=== PATIENT | female | born 1950 | race Caucasian/White ===

== ENCOUNTER 2021-07-12 17:46 | Emergency (ER) | payer MEDICARE, OTHER ==
[~2021-07-12] VITALS: Ht 162.6 cm; Wt 83.1 kg
[2021-07-12] MEDS ORDERED: ONDANSETRON PF 4 MG/2 ML VIAL. ONE (18:17)
[2021-07-12] MEDS ORDERED: ONDANSETRON PF 4 MG/2 ML VIAL. IVP ONE ×2 (18:30→21:30)
--- NOTE | 2021-07-12 18:33 | EKG ---
[address] [address] Test Date: 2021-07-12 Test Time: 18:26:18 Pat Name: VIJAYA NEGRO Department: Room: Gender: F Medical Assembler: AYLEEN : 1950 Requested By: BRAYDON MUÑOZ Order Number: [id number] Reading MD: Mookie Patel Measurements Intervals [place] Rate: 84 P: 31 [place]: 150 QRS: -6 QRSD: 80 T: 63 QT: 388 QTc: 462 Interpretive Statements SINUS RHYTHM ATRIAL PREMATURE COMPLEX(ES) LEFTWARD AXIS Electronically Signed On 07-14-2021 16:04:32 CDT by Mookie Patel
[2021-07-12 18:42] LABS: BASO % 0 % (0-3); EOS # 0.1 x10^3/uL (0.0-0.7); EOS % 1 % (0-3); HEMATOCRIT 44.6 % (36.0-47.0); HEMOGLOBIN 15.2 g/dL (12.0-15.5); LYMPH # 2.4 x10^3/uL (1.0-4.8); LYMPH % 24 % (24-48); MEAN CORPUSCULAR HEMOGLOBIN 33 pg (25-35); MEAN CORPUSCULAR HGB CONC 34 g/dL (31-37); MEAN CORPUSCULAR VOLUME 95 fL (79-100); MONO # 1.3 x10^3/uL (0.0-1.1); MONO % 13 % (0-9); NEUT # 6.1 x10^3uL (1.8-7.7); NEUT % 62 % (31-73); PLATELET COUNT 281 x10^3/uL (140-400); RED BLOOD COUNT 4.68 x10^6/uL (3.50-5.40); RED CELL DISTRIBUTION WIDTH 13.6 % (11.5-14.5); WHITE BLOOD COUNT 9.8 x10^3/uL (4.0-11.0)
--- NOTE | 2021-07-12 18:42 | PHYS DOC ---
Past History Past Surgical History: Hysterectomy (BRAYDON MUÑOZ APRN) Alcohol Use: None (BRAYDON MUÑOZ APRN) General Adult EDM: Chief Complaint: NAUSEA/VOMITING/DIARRHEA HPI: HPI: Patient is a 70-year-old female presents with nausea, productive cough, shortness of breath. Patient states that she was seen in the [facility] a week ago and told she had bronchitis and started on doxycycline. Patient states "I am coughing so hard that I start gagging and have been able to take my antibiotics". Denies vomiting. Denies abdominal pain. Denies chest pain. Afebrile. (BRAYDON MUÑOZ APRN) Review of Systems: Review of Systems: Constitutional: Denies fever or chills Eyes: Denies change in visual acuity HENT: Denies nasal congestion or sore throat Respiratory: Denies cough or shortness of breath Cardiovascular: Denies chest pain or edema GI: Denies abdominal pain, vomiting, diarrhea. Reports nausea : Denies dysuria Musculoskeletal: Denies back pain or joint pain Integument: Denies rash Neurologic: Denies headache, focal weakness or sensory changes Endocrine: Denies polyuria or polydipsia Lymphatic: Denies swollen glands Psychiatric: Denies depression or anxiety (BRAYDON MUÑOZ APRN) Current Medications: Current Meds: Current Medications Medications (Trade) Dose Ordered Sig/Beni Start Time Stop Time Status Last Admin Dose Admin Ondansetron HCl (Zofran) 4 mg 1X ONCE 07/12/21 18:30 07/12/21 18:32 DC (BRAYDON MUÑOZ APRN) Allergies: Allergies: Allergies Coded Allergies Type Severity Reaction Last Updated Verified No Known Drug Allergies 07/12/21 No (BRAYDON MUÑOZ APRN) Physical Exam: PE: Constitutional: Well developed, well nourished, no acute distress, non-toxic appearance. [] HENT: Normocephalic, atraumatic, bilateral external ears normal, oropharynx moist, no oral exudates, nose normal. [] Eyes: PERRLA, EOMI, conjunctiva normal, no discharge. [] Neck: Normal range of motion, no tenderness, supple, no stridor. [] Cardiovascular:Heart rate sinus tachycardia, no murmur [] Lungs & Thorax: Bilateral breath sounds clear to auscultation [] Abdomen: Bowel sounds normal, soft, no tenderness, no masses, no pulsatile masses. [] Skin: Warm, dry, no erythema, no rash. [] Back: No tenderness, no CVA tenderness. [] Extremities: No tenderness, no cyanosis, no clubbing, ROM intact, no edema. [] Neurologic: Alert and oriented X 3, normal motor function, normal sensory function, no focal deficits noted. [] Psychologic: Affect normal, judgement normal, mood normal. [] (BRAYDON MUÑOZ APRN) Current Patient Data: Vital Signs: Vital Signs Date Time Temp Pulse Resp B/P (MAP) Pulse Ox O2 Delivery O2 Flow Rate FiO2 07/12/21 18:08 97.9 111 18 132/92 (105) 100 (BRAYDON MUÑOZ APRN) EKG: EKG: Sinus rhythm. Heart rate 84 bpm. No STEMI. Read by Dr. Vasquez (BRAYDON MUÑOZ APRN) Radiology/Procedures: Radiology/Procedures: []EXAMINATION: Chest radiograph. VIEWS: Single AP view of the chest COMPARISON: None INDICATION:70 years, Female, cough, shortness of breath, bronchitis x1 week ago. FINDINGS: Normal cardiomediastinal silhouette. Hazy left basilar Concepcion with associated volume loss. No pleural effusion or pneumothorax. No acute osseous process. IMPRESSION: Left basilar hazy opacity favors atelectasis, less likely developing infiltrate Electronically signed by: Harman Thomas DO (07/12/2021 6:57 PM) [facility] -CTA CHEST INDICATION: SOB Comparison: None. TECHNIQUE: Following the uneventful administration of intravenous contrast, 75 cc Omnipaque 350, axial CT sections were obtained through the lungs and upper abdomen. Multiplanar reconstructions and MIP images were obtained. RS compliance statement: One or more of the following individualized dose reduction techniques were utilized for this examination: 1. Automated exposure control 2. Adjustment of the mA and/or kV according to patient size 3. Use of iterative reconstruction technique FINDINGS: Pulmonary arteries: No evidence of pulmonary thromboembolic disease. Lungs and Airways: Scattered bilateral groundglass opacities. No abnormality of the central airways. Pleura: The pleural spaces are normal. Heart and Mediastinum: The visualized thyroid is normal in size and attenuation. No axillary or supraclavicular lymphadenopathy. No mediastinal, hilar or retrocrural lymphadenopathy. The heart and pericardium are within normal limits. The great vessels of the thorax are normal. Abdomen: Hepatomegaly and hepatic steatosis. Bones and Soft Tissues: Degenerative changes of the spine. IMPRESSION: 1. No evidence of pulmonary thromboembolic disease. 2. Scattered bilateral groundglass opacities, which could represent edema or infection Electronically signed by: Andrey Gray MD (07/12/2021 9:08 PM) [facility] (BRAYDON MUÑOZ APRN) Heart Score: C/O Chest Pain: No Risk Factors: Risk Factors: DM, Current or recent (<one month) smoker, HTN, HLP, family history of CAD, obesity. Risk Scores: Score 0 - 3: 2.5% MACE over next 6 weeks - Discharge Home Score 4 - 6: 20.3% MACE over next 6 weeks - Admit for Clinical Observation Score 7 - 10: 72.7% MACE over next 6 weeks - Early Invasive Strategies (BRAYDON MUÑOZ APRN) Course & Med Decision Making: Course & Med Decision Making Pertinent Labs and Imaging studies reviewed. (See chart for details) [] 62-year-old female presents with cough, shortness of breath and nausea. Patient was recently diagnosed with bronchitis and started on doxycycline. D-dimer 0.86. CTA ordered to rule out PE. CTA unremarkable. All labs unremarkable. Discussed results with patient. Patient most likely is becoming nauseated due to postnasal drip and taking doxycycline on an empty stomach. Discussed taking antibiotic with food. Patient treated in the ER with dexamethasone and Zofran. Patient requested also to be tested for Covid. Explained patient it would take 24 to 48 hours to receive results. Patient is concerned with taking doxycycline due to making her ill. Patient sent home with Zofran and azithromycin. Recommended purchasing Sudafed to help treat symptoms. Patient should follow up with her PCP in 2 to 3 days if symptoms do not improve. Discussed return precautions. Patient is hemodynamically stable upon disposition and states symptoms have improved. (BRAYDON MUÑOZ APRN) Course & Med Decision Making Did not see or evaluate patient. Did not discuss patient with LENDING ADVISOR. Agree with LENDING ADVISOR's work-up and disposition per note. (KARLIE VASQUEZ MD) Emmanuelon Disclaimer: Dragjamila Disclaimer: This electronic medical record was generated, in whole or in part, using a voice recognition dictation system. (BRAYDON MUÑOZ APRN) Departure Departure: Impression: Primary Impression: Nausea Additional Impression: Cough Disposition: HOME / SELF CARE / HOMELESS Condition: STABLE Referrals: BERRY JOSE MD (PCP) Patient Instructions: Cough, Adult, [id number] Additional Instructions: EMERGENCY DEPARTMENT GENERAL DISCHARGE INSTRUCTIONS Thank you for coming to [facility] (ED) today and trusting us with you care. We trust that you had a positivie experience in our Emergency Department. If you wish to speak to the department management, you may call the director at [phone]. YOUR FOLLOW UP INSTRUCTIONS ARE FOLLOWS: 1. Do you have a private Doctor? If you do not have a private doctor, please ask for a resource list of physicians or clinics that may be able to assist you with follow up care. 2. The Emergency Physician has interpreted your x-rays. The X-Ray specialist will also review them. If there is a change in the findings, you will be notified in 48 hours when at all possible. 3. A lab test or culture has been done, your results will be reviewed and you will be notified if you need a change in treatment. ADDITIONAL INSTRUCTIONS AND INFORMATION: 1. Your care today has been supervised by a physician who is specially trained in emergency care. Many problems require more than one evaluation for a complete diagnosis and treatment. We recommend that you schedule your follow up appointment as recommended to ensure complete treatment of you illness or injury. If you are unable to obtain follow up care and continue to have a problem, or if your condition worsens, we recommend that you return to the ED. 2. We are not able to safely determine your condition over the phone nor are we able to give sound medical advice over the phone. For these safety reasons, if you call for medical advice we will ask you to come to the ED for further evaluation. 3. If you have any questions regarding these discharge instructions please call the ED at [phone]. SAFETY INFORMATION: In the interest of safety, wellness, and injury prevention; we encourage you to wear your sealbelt, if you smoke; quite smoking, and we encourage family to use a protective helmet for bicycling and other sporting events that present an increased risk for head injury. IF YOUR SYMPTOMS WORSEN OR NEW SYMPTOMS DEVELOP, OR YOU HAVE CONCERNS ABOUT YOUR CONDITION; OR IF YOUR CONDITION WORSENS WHILE YOU ARE WAITING FOR YOUR FOLLOW UP APPOINTMENT; EITHER CONTACT YOUR PRIMARY CARE DOCTOR, THE PHYSICIAN WHOSE NAME AND NUMBER YOU WERE GIVEN, OR RETURN TO THE ED IMMEDIATELY. Scripts Azithromycin (ZITHROMAX) 250 Mg Tablet 1 PKG PO UD for bronchitis for 5 Days, #1 PKG Prov: BRAYDON MUÑOZ APRN 07/12/21 Ondansetron Hcl (ZOFRAN) 4 Mg Tablet 4 MG PO TID PRN PRN for NAUSEA for 7 Days, #9 TAB Prov: BRAYDON MUÑOZ APRN 07/12/21 BRAYDON MUÑOZ APRN Jul 12, 2021 18:42 KARLIE VASQUEZ MD Jul 13, 2021 03:06
[2021-07-12 18:48] LABS: CALCIUM 9.9 mg/dL (8.5-10.1); CREATININE 1.1 mg/dL (0.6-1.0); GFR 49.4; POTASSIUM 3.8 mmol/L (3.5-5.1)
[2021-07-12 18:54] LABS: ALBUMIN 3.5 g/dL (3.4-5.0); ALBUMIN/GLOBULIN RATIO 0.7 (1.0-1.7); TOTAL BILIRUBIN 0.9 mg/dL (0.2-1.0); TOTAL PROTEIN 8.8 g/dL (6.4-8.2)
[2021-07-12] MEDS ORDERED: IV NORMAL SALINE 1,000ML 1,000 ML IV ONE (19:00)
--- NOTE | 2021-07-12 19:00 | RAD ---
EXAMINATION: Chest radiograph. VIEWS: Single AP view of the chest COMPARISON: None INDICATION:70 years, Female, cough, shortness of breath, bronchitis x1 week ago. FINDINGS: Normal cardiomediastinal silhouette. Hazy left basilar Concepcion with associated volume loss. No pleural effusion or pneumothorax. No acute osseous process. IMPRESSION: Left basilar hazy opacity favors atelectasis, less likely developing infiltrate Electronically signed by: Harman Thomas DO (07/12/2021 6:57 PM) [facility]
[2021-07-12] MEDS ORDERED: IOHEXOL 350 MG/ML 100 ML VIAL. IV ONE (20:30)
--- NOTE | 2021-07-12 21:10 | RAD ---
CTA CHEST INDICATION: SOB Comparison: None. TECHNIQUE: Following the uneventful administration of intravenous contrast, 75 cc Omnipaque 350, axia l CT sections were obtained through the lungs and upper abdomen. Multiplanar reconstructions and MIP images were obtained. PQRS compliance statement: One or more of the following individualized dose reduction techniques were utilized for this examinat ion: 1. Automated exposure control 2. Adjustment of the mA and/or kV according to patient size 3. Use of iterative reconstruction technique FINDINGS: Pulmonary arteries: No evidence of pulmonary thromboembolic disease. Lungs and Airways: Scattered bilateral groundglass opacities. No abnormality of the central airways. Pleura: The pleural spaces are normal. Heart and Mediastinum: The visualized thyroid is normal in size and attenuation. No axillary or supra clavicular lymphadenopathy. No mediastinal, hilar or retrocrural lymphadenopathy. The heart and peric ardium are within normal limits. The great vessels of the thorax are normal. Abdomen: Hepatomegaly and hepatic steatosis. Bones and Soft Tissues: Degenerative changes of the spine. IMPRESSION: 1. No evidence of pulmonary thromboembolic disease. 2. Scattered bilateral groundglass opacities, which could represent edema or infection Electronically signed by: Andrey Gray MD (07/12/2021 9:08 PM) [facility]
[2021-07-12 21:13] LABS: BILIRUBIN,URINE NEG (NEG); CLARITY,URINE HAZY; COLOR,URINE YELLOW; GLUCOSE,URINE 250 mg/dL (NEG); NITRITE,URINE NEG (NEG); UROBILINOGEN,URINE 0.2 mg/dL (0.2 mg/dL)
[2021-07-12 21:14] LABS: BACTERIA,URINE FEW /HPF (0-FEW); GRANULAR CASTS,URINE OCC /HPF; SQUAMOUS EPITHELIAL CELL,UR MANY /LPF
[2021-07-12] MEDS ORDERED: ONDA4TAB7 PO (21:35)
[2021-07-12] MEDS ORDERED: AZIT250T PO (21:35)
[2021-07-12 21:40] VITALS: BP 159/76
[2021-07-12] MEDS ORDERED: DEXAMETHASONE SOD PHOS 10 MG/ML VIAL. IVP ONE (22:00)
== END 2021-07-12 21:45 | disposition home or self-care (01) ==
LOC: ER 17:46
DX: R11.0 Nausea (principal); R05.9 Cough, unspecified; R06.02 Shortness of breath; Z20.822 Contact with and (suspected) exposure to COVID-19
CPT/HCPCS: 36415; 71045; 71275; 80053; 81001; 84484; 85025; 85379; 87086; 93005; 96361; 96374; 96375; 96376; 99285; C9803; J1100; J2405; J7030; Q9967; U0003; 87077